=== PATIENT | male | born 1950 | race African-American/Black ===

== ENCOUNTER 2021-05-03 09:05 | Inpatient (IN) | payer OTHER ==
[~2021-05-03] VITALS: Ht 180.3 cm; Wt 73.9 kg
[2021-05-03 09:11] VITALS: BP 216/119
[2021-05-03] MEDS ORDERED: NORVASC10 MG PO (09:59)
[2021-05-03] MEDS ORDERED: ASA81BEC PO (10:00)
[2021-05-03] MEDS ORDERED: CATAPRES0.2 MG PO (10:01)
[2021-05-03] MEDS ORDERED: LIPITOR 20 MG T20 M1 PO (10:01)
[2021-05-03] MEDS ORDERED: FLONASE 0.05%50 MCG NARES (10:02)
[2021-05-03] MEDS ORDERED: DECADRON0.5 MG PO (10:02)
[2021-05-03] MEDS ORDERED: GLIPIZIDE 10 MG10 MG PO (10:03)
[2021-05-03] MEDS ORDERED: NOVOLOG100 UNIT/2 SUBQ (10:04)
[2021-05-03] MEDS ORDERED: HYDRALAZINE 2525 MG PO (10:04)
[2021-05-03] MEDS ORDERED: LANTUS100 UNIT/M SUBQ (10:05)
[2021-05-03] MEDS ORDERED: METFORMIN HCL500 M3 PO (10:06)
[2021-05-03] MEDS ORDERED: BIDIL TABLET1 EACH PO (10:06)
[2021-05-03] MEDS ORDERED: TOPROL XL25 MG PO (10:07)
[2021-05-03] MEDS ORDERED: SUPER THERAVIT1 EACH PO (10:07)
[2021-05-03] MEDS ORDERED: ONDANSETRON ODT4 MG PO (10:07)
[2021-05-03] MEDS ORDERED: ROSUVASTATIN CA10 MG PO (10:08)
[2021-05-03] MEDS ORDERED: DESYREL150 MG PO (10:09)
[2021-05-03 10:11] LABS: URINE BILIRUBIN NEGATIVE (Negative); URINE BLOOD 2+ (Negative); URINE CLARITY CLEAR; URINE COLOR YELLOW; URINE GLUCOSE-RANDOM* 3+ (Negative); URINE KETONES 1+ (Negative); URINE LEUKOCYTES-REFLEX NEGATIVE (Negative); URINE NITRITE-REFLEX NEGATIVE (Negative); URINE PROTEIN (DIPSTICK) 2+ (Negative); URINE SPECIFIC GRAVITY 1.015 (1.005-1.035); URINE UROBILINOGEN 0.2 E.U./dl (0.2-1.0)
[2021-05-03 10:30] LABS: SQUAMOUS 0-3 Few /LPF (0-3)
[2021-05-03 10:31] LABS: BACTERIA-REFLEX None Seen /HPF (None Seen); CASTS None Seen /LPF (None Seen); CRYSTALS None Seen /LPF (None Seen); URINE RBC 3-10 Few /HPF (NONE SEEN); URINE WBC-REFLEX 0-5 Rare /HPF (0-5)
[2021-05-03 10:57] LABS: HCO3 17.8 mmol/L (22.0-26.0); PCO2 28.6 mmHg (35.0-45.0); PO2 58.9 mmHg (80.0-100.0); pH 7.412 (7.360-7.450); sO2 91.3 % (92.0-98.0)
[2021-05-03 11:05] LABS: ABSOLUTE NEUTROPHILS 7.2 thou/uL (1.4-8.2); BASOPHILS 0.8 % (0.0-2.0); EOSINOPHILS 0.5 % (0.0-3.0); HEMATOCRIT 23.6 % (42.0-52.0); HEMOGLOBIN 7.9 gm/dL (14.0-18.0); LYMPHOCYTES 9.8 % (24.0-44.0); MCH 26.8 pg (26.0-34.0); MCHC 33.6 g/dL (28.0-37.0); MCV 79.6 fL (80.0-100.0); MONOCYTES 10.5 % (1.0-8.0); PLATELET COUNT 334 thou/uL (150-400); POLYS 78.4 % (36.0-66.0); RBC 2.96 mil/uL (4.50-6.00); RDW 15.5 % (10.5-14.5); WBC 9.1 thou/uL (4.0-11.0)
[2021-05-03 11:22] LABS: CALCIUM 8.1 mg/dL (8.5-10.1); CREATININE 2.7 mg/dL (0.7-1.3); MAGNESIUM 1.5 mg/dL (1.8-2.4); TOTAL BILIRUBIN 0.3 mg/dL (0.2-1.0); TOTAL PROTEIN 6.2 g/dL (6.4-8.2)
[2021-05-03 11:24] LABS: POTASSIUM 2.9 mmol/L (3.5-5.1)
[2021-05-03 14:43] LABS: MAGNESIUM 1.5 mg/dL (1.8-2.4); PHOSPHORUS 3.3 mg/dL (2.6-4.7)
[2021-05-03 16:11] LABS: CALCIUM 7.6 mg/dL (8.5-10.1); CREATININE 2.5 mg/dL (0.7-1.3); PHOSPHORUS 2.8 mg/dL (2.6-4.7); POTASSIUM 3.2 mmol/L (3.5-5.1)
[2021-05-03 16:50] VITALS: BP 175/104
[2021-05-03 17:04] VITALS: BP 183/100
[2021-05-03] MEDS ORDERED: SPIRONOLACTONE25 MG PO (17:21)
[2021-05-03] MEDS ORDERED: TAMSULOSIN HCL0.4 MG PO (17:23)
[2021-05-03 19:35] VITALS: BP 163/82
[2021-05-04 00:45] VITALS: BP 146/76
--- NOTE | 2021-05-04 02:52 | NUR ---
0230 BLOOD SUGAR 42 AT 2009 AND 1 AMP D50 GIVEN. NOTIFIED PRECISION FARMING SPECIALIST AND ORDERS FOR D5W AT 50CC/HR. WILL RECHECK BLOOD SUGAR AT 0320
[2021-05-04 05:15] VITALS: BP 134/98
[2021-05-04 06:10] LABS: CALCIUM 8.6 mg/dL (8.5-10.1); CREATININE 2.6 mg/dL (0.7-1.3); PHOSPHORUS 3.1 mg/dL (2.6-4.7)
--- NOTE | 2021-05-04 06:29 | NUR ---
0325 BLOOD SUGAR 73 PAST D5W AT 50/CC/HR. 0520 PATIENT UP INCONTINENT BOWEL AND BLADDER. PULLED BOTH IV'S OUT. 0630 CLEANED UP AND BED CHANGED. RESTARTING IV. CONTINUE TO ASSASIA SIGALA.
[2021-05-04 06:30] LABS: ALBUMIN 1.9 g/dL (3.4-5.0)
[2021-05-04 08:00] VITALS: BP 177/100
[2021-05-04 11:58] VITALS: BP 144/81
[2021-05-04 16:00] VITALS: BP 135/83
--- NOTE | 2021-05-04 17:08 | NUR ---
PT IS AXOX3-4, FORGETFUL AT TIMES; DENIES PAIN. VSS, AFEBRILE, SR PVC ON THE MONITOR. PT HAS POORLY CONTROLLED BS. LONG ACTING INSULIN D/C. DR VAZQUEZ CONSULTED. AND DTRS UPDATED ON POC. POC IS TO CONTINUE TO ASSESS AND ADJUST BLOOD SUGAR CONTROL NEEDED; CONTINUE IV ABX. CONTINUE D5. FALL PRECAUTIONS IN PLACE. NO CONCERNS AT THIS TIME.
[2021-05-04 19:24] VITALS: BP 154/66
[2021-05-05] VITALS (7 sets, daily range): BP systolic 146–160; BP diastolic 64–87
[2021-05-05 02:58] LABS: ABSOLUTE NEUTROPHILS 4.4 thou/uL (1.4-8.2); BASOPHILS 0.7 % (0.0-2.0); EOSINOPHILS 1.1 % (0.0-3.0); HEMATOCRIT 21.2 % (42.0-52.0); HEMOGLOBIN 7.2 gm/dL (14.0-18.0); LYMPHOCYTES 21.4 % (24.0-44.0); MCH 26.6 pg (26.0-34.0); MCHC 33.8 g/dL (28.0-37.0); MCV 78.8 fL (80.0-100.0); MONOCYTES 11.1 % (1.0-8.0); POLYS 65.7 % (36.0-66.0); RBC 2.69 mil/uL (4.50-6.00); WBC 6.7 thou/uL (4.0-11.0)
[2021-05-05 03:01] LABS: PLATELET COUNT 228 thou/uL (150-400)
--- NOTE | 2021-05-05 07:20 | NUR ---
SLEPT MOST OF SHIFT. UP TO SIDE OF BED WITH STANDBY ASSIST. DENIES COMPLAINTS THIS AM. TURNS SELF. D5W REMAINS AT 50CC/HR TO MAINTAIN BLOOD SUGARS. CONTINUE TO ASSES.
--- NOTE | 2021-05-05 08:03 | EKG ---
[place] [address] [facility] [place] [address] ELECTROCARDIOGRAM REPORT Name: RANDI DOSS Room #: 218-P ADM IN M.R.#: [id number] Admission: 05/03/21 Attend Phys: Bobby Marquez DO Discharge: Date of : 52 Report #: [id number] [facility] ED Test Date: 2021-05-03 Test Time: 09:17:29 Pat Name: RANDI DOSS Department: Room: 218 Gender: M Staff Reporter: SIGIFREDO : 1950 Requested By: Pravin Kim Order Number: [id number] MD: Major Berrios Measurements Intervals [place] Rate: 85 P: 60 VT: 167 QRS: -29 QRSD: 97 T: -17 QT: 327 QTc: 389 Interpretive Statements Sinus rhythm Probable left atrial enlargement Borderline left axis deviation Borderline repol abnormality, diffuse leads No previous ECG available for comparison Electronically Signed On 05-05-2021 8:02:48 DAIRY PROCESSING EQUIPMENT OPERATOR by Major Berrios [email or web address] <ELECTRONICALLY SIGNED> By: Major Berrios MD, [facility] 05/05/21 0802 6 6 Major Berrios MD, FACC /EPI
--- NOTE | 2021-05-05 13:43 | 2DMMODE ---
[facility] [place] [address] 2 D/M-MODE ECHOCARDIOGRAM Name: RANDI DOSS Room #: 218-P ADM IN M.R.#: [id number] Admission: 05/03/21 Attend Phys: Bobby Marquez DO Discharge: Date of : 52 Report #: [id number] THIS REPORT FOR: cc: Eric Irving MD, Douglas James MD Lammoglia, Francisco J. MD ~ APPROVED REPORT Study performed: 05/05/2021 11:59:29 EXAM: Comprehensive 2D, Doppler, and color-flow Echocardiogram Patient Location: Bedside Room #: 218 Status: routine BSA: 1.91 HR: 61 bpm BP: 157/65 mmHg Rhythm: Sinus arrhythmia Other Information Study Quality: Good Indications Resipiatory failure, fluid overload. 2D Dimensions RVDd: 38.00 mm IVSd: 14.00 (7-11mm) LVOT Diam: 21.00 (18-24mm) LVDd: 49.00 mm PWd: 15.00 (7-11mm) Ascending Ao: 43.00 (22-36mm) LVDs: 37.00 (25-40mm) Left Atrium: 38.00 (27-40mm) Aortic Root: 39.00 mm Volumes Left Atrial Volume (Systole) Single Plane 4CH: 57.30 mL Single Plane 2CH: 57.28 mL Aortic Valve AoV Peak Wesly.: 1.78 m/s AO Peak Gr.: 12.72 mmHg LVOT Max P.33 mmHg LVOT Max V: 1.04 m/s ATYLOR Vmax: 2.[address] [facility] [address] [place] [address] 2 D/M-MODE ECHOCARDIOGRAM Name: WANDA DOSSDAR Room #: 218-P [facility] IN ..#: [id number] Admission: 05/03/21 Attend Phys: Bobby Marquez DO Discharge: Date of : 52 Report #: [id number] Mitral Valve E/A Ratio: 0.8 MV Decel. Time: 191.48 ms MV E Max Wesly.: 0.89 m/s MV A Wesly.: 1.16 m/s MV PHT: 55.53 ms IVRT: 115.34 ms Pulmonary Valve PV Peak Wesly.: 1.21 m/s PV Peak Gr.: 5.83 mmHg Pulmonary Vein P Vein S: 0.53 m/s P Vein A: 0.24 m/s P Vein D: 0.38 m/s P Vein A Dur.: 92.3 msec P Vein S/D Ratio: 1.39 Tricuspid Valve TR Peak Wesly.: 2.23 m/s RAP Estimate: 5.00 mmHg TR Peak Gr.: 20.00 mmHg PA Pressure: 25.00 mmHg Left Ventricle The left ventricle is normal size. There is normal LV segmental wall motion. Moderate concentric left ventricular hypertrophy. Left ventricular systolic function is normal. LVEF is 55%. Mild diastolic dysfunction is present (impaired relaxation pattern). Right Ventricle The right ventricle is normal size. The right ventricular systolic function is normal. Atria The left atrium size is normal. The right atrium size is normal. Aortic Valve The aortic valve is normal in structure. Trace aortic regurgitation. There is no aortic valvular stenosis. Mitral Valve The mitral valve is normal in structure. Mitral valve leaflets are thickened. Trace to mild mitral regurgitation. No evidence of mitral valve stenosis. Tricuspid Valve The tricuspid valve is normal in structure. Trace tricuspid [facility] [address] [place] [address] 2 D/M-MODE [facility]ARDIOGRAM [facility] #: [address] [place] [address] IN M.R.#: [id number] Admission: 05/03/21 Attend Phys: Bobby Marquez DO Discharge: Date of : 52 Report #: [id number] regurgitation. Estimated PAP is 25mmHg. Pulmonic Valve The pulmonary valve is normal in structure. Trace pulmonic regurgitation. Great Vessels Aortic root is at upper limits of normal (3.9cm). 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 IVC is normal in size and collapses >50% with inspiration. Pericardium Small not hemodynamically significant anterior pericadial effusion. <Conclusion> The left ventricle is normal size. Moderate concentric left ventricular hypertrophy. LVEF is 55%. The right ventricle is normal size. The left atrium size is normal. The aortic valve is normal in structure. Trace aortic regurgitation. The mitral valve is normal in structure. Trace to mild mitral regurgitation. No evidence of mitral valve stenosis. The tricuspid valve is normal in structure. Trace tricuspid regurgitation. Estimated PAP is 25mmHg. The pulmonary valve is normal in structure. Trace pulmonic regurgitation. Aortic root is at upper limits of normal (3.9cm). 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 Small not hemodynamically significant anterior pericadial effusion. <ELECTRONICALLY SIGNED> By: González Iqbal MD 05/05/21 1342 1342 1342 González Iqbal MD /INF
--- NOTE | 2021-05-05 14:22 | NUR ---
Nutrition: RD received consult stating poor appetite which nsg reports is now resolved. Pt was not eating well due to hyperglycemia which is now improved. Eating 50-100% of meals on Carb controlled diet. Weights [id number]# this admit, no other weight hx and no answer with call to room. Pt currently on isolation room. Recent COVID dx at [facility] but re-testing pt now per nsg. D5 at 50 mL/hr, Currently hypernatremia. BG 51-183, on SSI. Consider low nutrition risk.
--- NOTE | 2021-05-05 15:15 | NUR ---
PT ADMITTED RELATED TO MARGOT, ELEVATED TROPONIN, HYPERGLYCEMIA, AND HTN EMERGENCY. CM REVIEWED CHART AND SPOKE WITH CARE TEAM. CM MET WITH PT AT BEDSIDE THIS DAY. PT APPEARED TO BE FAIRLY A&O X4. CM ROLE INTRODUCED. PT INDICATED HE LIVES IN A HOUSE WITH HIS WITH 3 STEPS TO ENTER AND NONE INISDE. PT INDICATED HE HAD BEEN INDEPEDNENT WITH GAIT AND ADLS PARTY PLANNER. PT INDICATED NO HH PARTY PLANNER. CM ASKED IF PT WOULD BE RECEPTIVE TO HH UPON DC AND PT INDICATED HE WOULD. CM ATTEMTPED PC TO PT'S SPOUSE AT HOME NUMBER AND TO PT'S DTR LILY AT . CM LEFT FOR PT'S DTR. CM RECIEVED VM FROM [facility] THAT PT HAD BEEN ON SERVICE WITH THEM PRIOR TO ADMISSION. CM CALLED AND SPOKE WITH THE OFFICE. THEY INDICATED THAT NURSE NOBLE HAD DONE START OF CARE WITH PT ON 05/01/21. PT HAD PT, OT, RN, AND RT SERVICES ORDERED AND ALL WOULD HAVE BEEN OUT TO SEE PT. CM NOTIFIED THEM OF PT'S ADMISSION. THEY ARE ABLE TO RESUME SERVICES WITH PT UPON DC. CM ASKED THAT PT AND OT ORDERS BE ENTERED. CM FOLLOWING.
--- NOTE | 2021-05-05 19:53 | NUR ---
PT IS AXOX3-4, FORGETFUL, SLUGGISH WITH LOW BLOOD SUGARS. VS BP 150SBP, AFEBRILE, SR WITH PVC ON THE MONITOR. PT STATED HE FELT SLUGGISH IN AM, WHEN BS WAS LOW. BECOME MORE ALERT BS BECAME MORE STABLE. DR MONTEIRO CALLED FOR CARDIOLOGY CONSULT. ALSO REQUESTED ADDL COVID PCR. AWAITING RESULTS. CARDIOLOGY CONSULTED NEPHROLOGY TO ASSIST WITH POC. PT TO HAVE US RENAL AND RENAL PANEL IN AM. WILL CONTINUE TO ASSESS BLOOD SUGARS. D5 TO CONTINUE. FALL PRECAUTIONS IN PLACE. NO CONCERNS AT THIS TIME.
--- NOTE | 2021-05-05 23:50 | NUR ---
2019 [place] [facility] HAD SMALL LOOSE STOOL. DENIES COMPLAINTS OF PAIN. REQUEST HOME DOSE OF TRAZADONE TONIGHT FOR SLEEP. BLADDER SCAN POST VOID 134CC. BLOOD SUGAR 66 AND SNACK GIVEN. VSS. USING COVID PRECAUTIONS AWAITING RESULTS. 2049 NURSING HARBOR DEPARTMENT MANAGER AND JEREL MANAGER EXPORT NOTIFIED PATIENT IS COVID POSITIVE. AWAITING NEW BED ORDER. PATIENT INFORMED AND STATES HE WILL LET FAMILY KNOW WHEN HE IS MOVED. 2244 REPORT CALLED TO SHANI RN ON 3W AND PATIENT TRANSFERED WITH MASK ON TO 360 PER BED. PATIENT AGAIN STATED HE WILL CALL FAMILY.
[2021-05-06 03:04] VITALS: BP 162/79
[2021-05-06 05:21] LABS: HEMATOCRIT 23.7 % (42.0-52.0); HEMOGLOBIN 7.9 gm/dL (14.0-18.0); MCH 26.8 pg (26.0-34.0); MCHC 33.3 g/dL (28.0-37.0); MCV 80.5 fL (80.0-100.0); RBC 2.94 mil/uL (4.50-6.00); RDW 16.1 % (10.5-14.5); WBC 8.6 thou/uL (4.0-11.0)
--- NOTE | 2021-05-06 05:33 | NUR ---
PT TRANSFERRED FROM 2N TO ROOM 360 THIS SHIFT AFTER TESTING POSITIVE ON PCR COVID TEST. ARRIVED TO 3W AT APPROXIMATELY 2245. VITAL SIGNS STABLE AND PT DENIES C/O AT THIS TIME. ON 2L PER NASAL CANNULA WITH O2 SATS >96%. USES URINAL AND CALLS APPROPRIATELY. BLOOD SUGAR HAD BEEN LOW (66) AT HS PER REPORT FROM TRANSFERRING NURSE. RECHECKED BS AROUND 0000, AND IT WAS 72. D5W RUNNING @ 50 ML/HR. PT RESTED THROUGHOUT MOST OF THE NIGHT. WILL CONTINUE TO OBSERVE FOR CHANGES.
[2021-05-06 05:46] VITALS: BP 149/74
[2021-05-06 05:54] LABS: ALBUMIN 1.8 g/dL (3.4-5.0); CALCIUM 7.8 mg/dL (8.5-10.1); CREATININE 2.6 mg/dL (0.7-1.3); PHOSPHORUS 3.2 mg/dL (2.5-4.9); POTASSIUM 3.6 mmol/L (3.5-5.1); TOTAL BILIRUBIN 0.2 mg/dL (0.2-1.0)
[2021-05-06 07:26] VITALS: BP 164/79
[2021-05-06 11:47] VITALS: BP 151/83
[2021-05-06 13:50] LABS: % SATURATION 17 % (20-39); IRON 32 ug/dL (65-175); TIBC 184 ug/dL (250-450)
--- NOTE | 2021-05-06 15:31 | NUR ---
ROBERT reviewed chart and spoke with nursing and attending physician. Pt was transferred to from CCU yesterday after having positive COVID PCR test. Enhanced Isolation precautions have been discontinued. Pt's [place]20[place] [facility] is afebrile and on 2L of O2. Pt is on IV abx and IV steroids. ID consulted. ROBERT updated [facility] liaison. Discharge home is anticipated in 1-2 days. Will need a rest/exercise oximetry ordered to determine home O2 needs. ROBERT is following to assist as needed with discharge planning.
[2021-05-06 15:47] VITALS: BP 161/70
[2021-05-06 18:59] VITALS: BP 149/72
[2021-05-07 03:56] VITALS: BP 174/81
[2021-05-07 06:15] LABS: HEMATOCRIT 21.8 % (42.0-52.0); HEMOGLOBIN 7.1 gm/dL (14.0-18.0); MCHC 32.7 g/dL (28.0-37.0); MCV 79.6 fL (80.0-100.0); RBC 2.74 mil/uL (4.50-6.00); RDW 16.1 % (10.5-14.5); WBC 5.8 thou/uL (4.0-11.0)
[2021-05-07 06:38] LABS: CALCIUM 7.3 mg/dL (8.5-10.1); CREATININE 2.9 mg/dL (0.7-1.3)
[2021-05-07 07:34] VITALS: BP 155/71
--- NOTE | 2021-05-07 07:46 | HC ---
[facility] [place] [address] CONSULTATION Name: RANDI DOSS Room #: 360-P ADM IN M.R.#: [id number] Admission: 05/03/21 Attend Phys: Karri Marquez DO Discharge: Date of : 52 Report #: [id number] THIS REPORT FOR: cc: Eric Irving MD, Douglas James MD Barry, Joseph W. MD ~ DATE OF SERVICE: 05/06/2021 INFECTIOUS DISEASE CONSULTATION ATTENDING PHYSICIAN: Dr. Marquez. REASON FOR EVALUATION: Positive COVID-19 test. HISTORY OF PRESENT ILLNESS: Chart reviewed. The patient examined. This is an 70-year-old gentleman with history of diabetes mellitus, hypertension, who was admitted on 07/31 with f marked hyperglycemia, apparently history was that he was recently hospitalized upto 3 weeks ago was diagnosed with COVID-19 infection. He completed that treatment course, was discharged. Initial testing was negative for COVID; however, they did repeat PCR testing, which was positive. Evaluation was requested. He has had serial chest x-ray, which showed improved infiltrates. He is still maintained on supplemental oxygen 2 L per nasal cannula. He denies significant pain at this point. He has not been febrile. He was initiated on therapy with ceftriaxone, azithromycin in addition to corticosteroids, which has been discontinued and vitamins. ALLERGIES: None known. CURRENT MEDICATIONS: Currently include furosemide, carvedilol, ascorbic acid, zinc, trazodone, ceftriaxone, hydralazine, clonidine as needed. PAST MEDICAL HISTORY: As described above, diabetes mellitus, hypertension. SOCIAL HISTORY: Former smoker, occasional ethanol, no illicit drug use. FAMILY HISTORY: Noncontributory. REVIEW OF SYSTEMS: Otherwise, unremarkable. His appetite has been satisfactory. He states he is ready to go home, PHYSICAL EXAMINATION: GENERAL: Mild distress, generally alert, cooperative. VITAL SIGNS: Temperature 98.4, pulse 67, respirations 18, blood pressure 151/83. SKIN: Warm, dry, no rashes. HEENT: Nasal cannula in place. Extraocular muscles intact. [facility] [address] [place] [address] CONSULTATION Name: WANDA DOSSDAR Room #: 360-P [facility] IN M.R.#: [id number] Admission: 05/03/21 Attend Phys: Karri Marquez DO Discharge: Date of : 52 Report #: [id number] NECK: Supple. LUNGS: Few scattered coarse breath sounds and basilar crackles. HEART: Regular. I do not appreciate a murmur. ABDOMEN: Slightly distended, mildly firm, nontender. EXTREMITIES: No cyanosis. GENITOURINARY AND RECTAL: Deferred. LABORATORY STUDIES: Renal ultrasound showed no evidence of obstructive uropathy. Serial chest x-rays, most recent shows improving, patchy diffuse bilateral lung opacities. Electrolytes: Sodium 143, potassium 3.6, chloride 110, bicarbonate is 18, anion gap of 15, BUN and creatinine 24 and 2.6, glucose of 145, AST is 29, ALT of 33, albumin 1.8, total protein 6.0. CBC: White count of 8.6, H and H 7.9 and 23.7, platelets of 169. Positive coronavirus testing. Procalcitonin 0.28. D-dimer 4.47. ASSESSMENT AND PLAN: Positive coronavirus test, this is not likely to represent evidence of an acute infection. I think it sounds as if he was diagnosed perhaps upto 3 weeks ago, I am not sure I see any evidence of ongoing focal area of pyogenic infection. I think we will discontinue antibiotics and observe, reason for hospitalization was hyperglycemia and seemingly that has improved. <ELECTRONICALLY SIGNED> By: Morris Peña MD 05/07/21 0746 1347 [id number] Morris Pñea MD /nt
[2021-05-07] MEDS ORDERED: CARVEDILOL25 MG PO (09:17)
[2021-05-07] MEDS ORDERED: LASIX 40 MG TAB40 M1 PO (09:17)
[2021-05-07] MEDS ORDERED: HYDRALAZINE 5050 MG PO (09:17)
[2021-05-07 11:05] VITALS: BP 155/71
--- NOTE | 2021-05-07 11:46 | NUR ---
DISCHARGE NOTE: ROBERT reviewed chart and spoke with nursing and attending physician. Pt is medically stable for discharge home today. Pt is on room air. SW notified [facility] HH liaison. ROBERT spoke wiht pt's dtr via phone to discuss discharge plan. Pt's dtr with multiple questions regarding discharge and home health services. SW explained HH services and visits. Pt's dtr with questions regarding medications that pt will be discharge home on. ROBERT explained that the nurse will review med list and d/c ppwk with pt and family prior to discharge. Pt's dtr, Nicci, to be contacted to arrange HH visits, per family request. SW notified HH liaison. Pt's dtr verbalized understanding and states they will be providing transportation home. Contact info for HH placed in pt's discharge summary. ROBERT updated pt's nurse. No additional SW needs identified at this time. SW is available to assist should needs arise.
--- NOTE | 2021-05-07 12:23 | NUR ---
DISCHARGE NOTE: PT ALERT AND ORIENTED X4. ON ROOM AIR, NO SIGNS OF DISTRESS NOTED. DISCHARGE INSTRCTION WENT THROUGH WITH PT AND HER DAUGHTER. THEY ARE AWARE ABOUT NEW MEDICATIONS AND UPCOMING APPOINTMENTS. IV AND TELE D/C. ALL BELONGINGS WITH PT. PATIENT TAKEN DOWN VIEW WHEEL CHAIR
[2021-05-08 01:06] LABS: GLYCOHEMOGLOBIN (HGB A1C) 10.3 % (4.8-5.6)
== END 2021-05-07 12:26 | disposition home health service (06) | DRG 177 ==
LOC: ER 09:05 → EROBS 12:03 → 2N 12:03 → 3W 05-05 22:45
PROVIDERS: Emergency Medicine; Hospitalist; Internal Medicine; ADMIT Pediatrics; ATTEND Pediatrics
PROC: 5A0935A Assistance with Respiratory Ventilation, Less than 24 Consecutive Hours, High Flow/Velocity Cannula (ICD-10-PCS; principal; 2021-05-03)
DX: U07.1 COVID-19 (principal); J96.01 Acute respiratory failure with hypoxia; J12.82 Pneumonia due to coronavirus disease 2019; I50.33 Acute on chronic diastolic (congestive) heart failure; N17.9 Acute kidney failure, unspecified; E46 Unspecified protein-calorie malnutrition; E87.0 Hyperosmolality and hypernatremia; I13.0 Hypertensive heart and chronic kidney disease with heart failure and stage 1 through stage 4 chronic kidney disease, or unspecified chronic kidney disease; I16.1 Hypertensive emergency; D64.9 Anemia, unspecified; E83.42 Hypomagnesemia; E11.22 Type 2 diabetes mellitus with diabetic chronic kidney disease; Z20.822 Contact with and (suspected) exposure to COVID-19; N18.30 Chronic kidney disease, stage 3 unspecified; E11.65 Type 2 diabetes mellitus with hyperglycemia; Z68.22 Body mass index [BMI] 22.0-22.9, adult; Z87.891 Personal history of nicotine dependence; Z91.19 Patient's noncompliance with other medical treatment and regimen; Z79.4 Long term (current) use of insulin
CPT/HCPCS: 10081; 10879